=== PATIENT | female | born 1995 | race Caucasian/White ===

== ENCOUNTER 2017-02-20 18:37 | Emergency (ER) | payer OTHER ==
[2017-02-20 19:35] LABS: BASOPHILS % 0.5 (0.0-1.5); EOSINOPHILS % 2.9 % (0.0-6.8); MEAN CORPUSCULAR VOLUME 97.8 fl (80.0-100.0); MONOCYTES % 3.2 % (0.0-11.0); NEUTROPHILS # 11.3 # k/uL (1.4-7.7)
[2017-02-20 19:48] LABS: eGFR (African) > 60; eGFR (Non-African) > 60
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
[2017-02-20 21:14] VITALS: BP 131/69
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
[2017-02-21 07:02] LABS: CANNABINOIDS NON NEGATIVE ng/mL (< 50); METHYLENEDIOXYMETHAMPHETAMINE NEGATIVE ng/mL (<500)
[2017-02-21 07:18] LABS: APPEARANCE,URINE CLEAR (CLEAR); COLOR,URINE YELLOW (YELLOW); OCCULT BLOOD,URINE TRACE-INTACT (NEGATIVE); PH URINE 6.5 (5.0 - 8.0); UROBILINOGEN URINE 0.2 Eu (0.2-1.0)
== END 2017-02-20 19:57 | disposition home or self-care (01) ==
LOC: ED 18:37
DX: T14.90XA Injury, unspecified, initial encounter (principal); V49.9XXA Car occupant (driver) (passenger) injured in unspecified traffic accident, initial encounter; Z34.01 Encounter for supervision of normal first pregnancy, first trimester
CPT/HCPCS: 70450; 72125; 80053; 80377; 81002; 85025; 99283; L0120; G0481; S1016

== ENCOUNTER 2018-01-16 16:34 | Emergency (ER) | payer MEDICAID, OTHER ==
[2018-01-16 17:30] VITALS: BP 140/82
--- NOTE | 2018-01-16 17:32 | ED Physician Documentation ---
Sore Throat/Dental Pain - HISTORIAN Historian: patient - HPI Stated Complaint: Dental pain Chief Complaint: Dental Pain Further Comments: yes (22 year old female presents with complaint of dental pain for the past 2 days. Has been using ibuprofen and tylenol at home. Has not seen the dentist.) - ROS CONST: no problems CVS/RESP: none GI/: denies: nausea, vomiting MS/SKIN/LYMPH: denies: muscle aches, rash, leg swelling, ankle swelling, other NEURO/PSYCH: none - PAST HX Past History: gum disease Allergies/Adverse Reactions: Allergies Allergy/AdvReac Type Severity Reaction Status Date / Time No Known Drug Allergies Allergy Verified 01/16/18 17:18 Home Medications: Ambulatory Orders Medication Instructions Recorded Venlafaxine HCl [Venlafaxine HCl 75 mg PO DAILY 04/13/15 ER] Amoxicillin [Trimox] 500 mg PO TID #30 capsule 01/16/18 - SOCIAL HX Smoking History: cigarettes - FAMILY HX Family History: No - VITAL SIGNS Vital Signs: Vital Signs Temp Pulse Resp BP Pulse Ox 97.4 F L 80 19 140/82 100 01/16/18 16:34 01/16/18 16:34 01/16/18 16:34 01/16/18 16:34 01/16/18 16:34 - REVIEWED ASSESSMENTS Nursing Assessment Reviewed: Yes Vitals Reviewed: Yes Progress - Progress Progress: Patient was seen in Er on 12/17/2017 - was instructed to follow up with PCP or OB for positive serum test. Patient has not seen OBGYN at this time. States she has been taking a pre- vitamin. Unable to obtain FHT; ultrasound used - positive heart tones; active fetus note. Instructed patient: STOP SMOKING, stop using ibuprofen until due dates are established, continue vitamins and keep appointment with OB doctor. ED Results Lab/Radiology - Orders Orders: ED Orders Category Date Time Status Heart Tones 1T Care 01/16/18 17:30 Ordered Dental Pain Physical Exam - EXAM General Appearance: mild distress Eyes: eyes nml inspection, PERRL Mouth/Throat: lips nml, gums nml, pharynx nml, voice nml, no drooling, no air way problems, no thrush, membranes nml, other (right front incisor with mild edema and erythema noted; no cavity noted. ) Respiratory: no resp. distress, breath sounds nml CVS: reg. rate & rhythm, heart sounds nml Abdomen: soft, no organomegaly, normal bowel sounds, no abdominal bruit, no distension Extremities: non-tender, nml ROM Skin: normal color, warm/dry, NR, INT, PAL, DR Neuro/Psych: none Discharge Clincal Impression: Dental abscess Qualifiers: Weeks of gestation: unspecified Qualified Code(s): Z34.90 - Encounter for supervision of normal , unspecified, unspecified trimester Prescriptions: Amoxicillin [Trimox] 500 mg PO TID #30 capsule Referrals: Missy Jaimes MD [Primary Care Provider] - 2 Days Additional Instructions: Tylenol 650-1000mg every 4 hours as needed for pain, limit your dose to 4G in 24 hours. No ibuprofen until you have established due dates and trimester Over the counter Orajel as needed for pain Continue your vitamins STOP SMOKING See your dentist as soon as possible ups driver your antibiotic today. Condition: Stable Disposition: 01 HOME, SELF-CARE Decision to Admit: NO Decision Time: 17:32
== END 2018-01-16 17:58 | disposition home or self-care (01) ==
LOC: ED 16:34
DX: Z34.90 Encounter for supervision of normal pregnancy, unspecified, unspecified trimester (principal); K04.7 Periapical abscess without sinus; Z72.0 Tobacco use
CPT/HCPCS: 99282

== ENCOUNTER 2018-12-06 12:07 | Emergency (ER) | payer MEDICAID, OTHER ==
--- NOTE | 2018-12-06 12:45 | ED Physician Documentation ---
Low Back Pain - HISTORIAN Historian: patient - HPI Stated Complaint: low back pain Chief Complaint: Low Back Pain/ Injury Additional Information: Patient presents to ED with a 2 day history of low back pain. Patient states the pain is worse when transitioning from seated to standing and vice versa as well as bending over. She states the pain is sharp stabbing, 8/10. Patient denies any injury. She is concerned about urinary tract infection but has no urinary complaints. Onset: days ago (2) Duration: continues in ED Recent Injury: No Context: bending Where: home Severity: moderate Quality: sharp Associated Symptoms: denies: fever, chills Worsened By:: other (bending forward ) Relieved By: remaining still - ROS CONST: no problems CVS/RESP: none EYES/ENT: none MS/SKIN/LYMPH: none - PAST HX Past History: denies: back injury, back pain Surgeries/Procedures: none Allergies/Adverse Reactions: Allergies Allergy/AdvReac Type Severity Reaction Status Date / Time No Known Drug Allergies Allergy Verified 12/06/18 12:47 Home Medications: Ambulatory Orders Medication Instructions Recorded Venlafaxine HCl [Venlafaxine HCl 75 mg PO DAILY 04/13/15 ER] Methylprednisolone [Medrol] 4 mg PO DIRECTED #1 tab.ds.pk 12/06/18 Orphenadrine (Nf) [Norflex] 100 mg PO Q12 #20 tab 12/06/18 - SOCIAL HX Smoking History: cigarettes Alcohol Use: none Drug Use: none - FAMILY HX Family History: no significant history - VITAL SIGNS Vital Signs: Vital Signs Temp Pulse Resp BP Pulse Ox 140/82 01/16/18 17:58 - REVIEWED ASSESSMENTS Nursing Assessment Reviewed: Yes Vitals Reviewed: Yes ED Results Lab/Radiology - Lab Results Lab Results: UA - negative for infection - Orders Orders: ED Orders Category Date Time Status methylPREDNISolone SOD SUCC [SOLU-Medrol] Med 12/06/18 12:42 Discontinued 125 mg IM NOW ONE Low Back Pain/Injury - Physical Exam General Appearance: alert EENT: SILVIA Neck: non-tender, painless ROM Resp/CVS: chest non-tender, breath sounds nml, heart sounds nml Abdomen: non-tender Back: non-tender, muscle spasm (posterior iliac crest bilaterally). No: vertebral point-tendernes, CVA tenderness Straight Leg Raising: Negative Left, Negative Right Neuro/Psych: oriented x3, motor nml, sensation nml, reflexes nml Skin: warm/dry Extremities: non-tender, no edema Discharge Clincal Impression: Low back pain Qualifiers: Chronicity: acute Back pain laterality: bilateral Sciatica presence: without sciatica Qualified Code(s): M54.5 - Low back pain Referrals: Missy Jaimes MD [Primary Care Provider] - 2 Days Additional Instructions: 1. Start Medrol dose pack tomorrow. 2. Tylenol 650mg every 4 hours as needed for pain. Do NOT take Ibuprofen until you have finished Medrol dose pack 3. Norflex as needed at bedtime for muscle spasm 4. Dr. Ryan Escudero's office will be contacting you with appointment bonnie tovar 5. Follow up with PCP as needed 6. Return to ER for new or worsening symptoms Condition: Stable Disposition: 01 HOME, SELF-CARE Decision to Admit: NO Date of Decison to Admit: 12/06/18 Decision Time: 12:47
[2018-12-06] MEDS: methylPREDNISolone SOD SUCC 125 MG/2 ML VIAL IM ONE (12:48)
[2018-12-06 13:04] VITALS: BP 112/85
[2018-12-07 06:13] LABS: APPEARANCE,URINE CLEAR (CLEAR); COLOR,URINE YELLOW (YELLOW); OCCULT BLOOD,URINE 1+ (NEGATIVE); UROBILINOGEN URINE 0.2 Eu (0.2-1.0)
== END 2018-12-06 13:04 | disposition home or self-care (01) ==
LOC: ED 12:07
DX: M54.5 Low back pain (principal)
CPT/HCPCS: 81002; 96372; 99282; 99283; J2930